=== PATIENT | female | born 1990 | race African-American/Black ===

== ENCOUNTER 2025-06-02 19:50 | Emergency (ER) | payer MEDICAID, SELFPAY ==
[2025-06-02 19:58] VITALS: BP 106/75; PULSE 103; RESP 18; TEMP 36.6; O2SAT 99
--- NOTE | 2025-06-02 20:08 | ED_ITS ---
HPI - Skin/Abscess/Foreign Bdy General Chief complaint: Skin/Abscess/Foreign Body Stated complaint: bump under arm Time Seen by Provider: 06/02/25 20:00 Source: patient and RN notes reviewed Mode of arrival: ambulatory Limitations: no limitations History of Present Illness HPI narrative: 34-year-old female presents [facility] complaining of abscess to her left armpit. Patient has a history of hydradenitis suppurativa, patient said this was a bother for 3 days. Patient has any fevers and body eczema chills, nausea vomiting, any other symptoms. Patient has not tried anything [id number] to help with symptoms, she is not on any antibiotic therapy for it Related Data Allergies Allergy/AdvReac Type Severity Reaction Status Date / Time No Known Allergies Allergy Verified 06/02/25 20:03 Review of Systems Review of Systems: CONSTITUTIONAL: Denies fever, chills, or sweats. EYES: Denies visual changes, redness, or discharge. ENT: Denies rhinorrhea, congestion, sore throat, or otalgia. CARDIOVASCULAR: Denies chest pain, palpitations, or edema. RESPIRATORY: Denies cough or dyspnea. GASTROINTESTINAL: Denies abdominal pain, nausea, vomiting, or diarrhea. GENITOURINARY: Denies dysuria or hematuria. SKIN: Denies rash or itching. Positive for abscess MUSCULOSKELETAL: Denies back pain, joint pain, or myalgia. NEUROLOGIC: Denies headache, numbness, or weakness. PSYCHIATRIC: Denies anxiety or depression. All other systems reviewed are negative, except as documented in HPI. PMFSH Comments At the time of my signature, I reviewed and agree with the nursing past medical, surgical, social, and family history. There is no relevant family history pertinent to the patient complaint. Exam Narrative: GENERAL: This is a well-nourished, well-developed adult, in no apparent distress. They are non ill-appearing, nontoxic appearing. HEAD: normocephalic, atraumatic. EYES: Sclera clear/white. Vision is grossly intact. EARS: External ears normal, Hearing grossly intact. NOSE: External nose normal THROAT: Mucous membranes moist, NECK: Neck supple, CARDIOVASCULAR: Regular rate and rhythm RESPIRATORY: Respiratory rate normal, respiratory effort nonlabored, no respiratory distress SKIN: Left axilla: MULTIPLE COMEDONES present to the left axilla, mid axillary tender to palpate, no exudate. Scarring present. No surrounding erythema, no induration. It is fluctuant however it is multiple comedones NEURO: awake, alert, and oriented to person, place and time. There were no obvious focal neurologic abnormalities. EXTREMITIES: No joint tenderness, effusion, or edema noted. BACK: Nontender without deformity. Course Course Level of Care: Express Care Visit Vital Signs Vital signs: Vital Signs Temperature 97.9 F 06/02/25 19:58 Pulse Rate 103 H 06/02/25 19:58 Respiratory Rate 18 06/02/25 19:58 Blood Pressure 106/75 06/02/25 19:58 Pulse Oximetry 99 06/02/25 19:58 Oxygen Delivery Room Air 06/02/25 19:58 Temperature 97.9 F 06/02/25 19:58 Pulse Rate 103 H 06/02/25 19:58 Respiratory Rate 18 06/02/25 19:58 Blood Pressure 106/75 06/02/25 19:58 Pulse Oximetry 99 06/02/25 19:58 Oxygen Delivery Room Air 06/02/25 19:58 MDM MDM Narrative Medical decision making narrative: Likely patient has a flare-up of her hidradenitis suppurativa, not recommended to drain the abscess. No cellulitis identified. Go ahead and treat her with doxycycline along with clindamycin gel. Advised patient to follow-up with district engineer for her condition. Discussed physical exam findings. Advised supportive measures and signs/symptoms to go to the ER. Pt is appropriate for outpt treatment and f/u. Differential Diagnosis Differential Diagnosis: Abscess, hydradenitis suppurative, cellulitis Critical Care Time Critical Care Time Critical Care Time: No Discharge Plan Discharge Clinical Impression: Hidradenitis suppurativa of left axilla Patient Disposition: Home Condition: Stable Instructions: Antibiotic Form, Hidradenitis Suppurativa (ED) Additional Instructions: DO NOT pick at the area. This will only make the area worse and drive infection deeper. Shower and wash with soapy water. Keep area clean and dry. Take all the antibiotics as prescribed. Apply the topical clindamycin to the affected area. Follow-up PCP in 3-5 days Go to the ER for worsening redness, swelling, pain, fevers, or any serious concerns. Patient Language: Luxem[place]ish Prescriptions: New doxycycline monohydrate 100 mg capsule 100 mg PO BID 7 Days Qty: 14 0RF clindamycin phosphate 1 % gel 1 applic topical BID 7 Days Qty: 60 0RF Rx Instructions: Apply to affected area Follow-up/Referrals: [facility] [Primary Care Provider, Internal Medicine] Time of Disposition: 20:04
== END 2025-06-02 20:11 | disposition home or self-care (01) ==
DX: L73.2 Hidradenitis suppurativa (principal)
CPT/HCPCS: 99203; G0463